=== PATIENT | female | born 1985 | race Caucasian/White ===

== ENCOUNTER → 2016-12-08 | Outpatient (CLI) | payer BC ==
[~2016-12-08] MED LIST: PRENTAB26 PO
[2016-12-08 15:34] LABS: HEMATOCRIT 38.8 % (37-47); MEAN CELL VOLUME 82.9 fL (80-100); MEAN CORPUSCULAR HEMOGLOBIN 26.9 pg (25-34); MEAN CORPUSCULAR HGB CONC 32.5 g/dl (32-36); PLATELET COUNT 445 K/uL (130-400); RED BLOOD COUNT 4.68 M/uL (4.2-5.4); WHITE BLOOD COUNT 11.09 K/uL (4.8-10.8)
[2016-12-08 15:56] LABS: PREG INTERNAL NEGATIVE QC NEG CLEAR BACKGROUND; PREG INTERNAL POSITIVE QC POS CONTROL LINE
== END | disposition home or self-care (01) ==
LOC: C.LAB1850 14:37
PROVIDERS: ATTEND Obstetrics & Gynecology
DX: N93.9 Abnormal uterine and vaginal bleeding, unspecified (principal)

== ENCOUNTER → 2016-12-08 | Outpatient (CLI) | payer BC | END | disposition home or self-care (01) | LOC: C.PAPS 11:34 | PROVIDERS: ATTEND Obstetrics & Gynecology | DX: Z01.419 Encounter for gynecological examination (general) (routine) without abnormal findings (principal) ==

== ENCOUNTER → 2016-12-16 | Outpatient (CLI) | payer BC ==
[2016-12-16 15:31] LABS: BASO % 0.3 %; BASO ABS # 0.03 K/uL (0-0.2); COMPLETE YES; EOS % 2.4 %; IG% 0.2 %; LYMPH % 27.1 %; MEAN CELL VOLUME 83.5 fL (80-100); MEAN CORPUSCULAR HEMOGLOBIN 27.1 pg (25-34); MEAN CORPUSCULAR HGB CONC 32.5 g/dl (32-36); MEAN PLATELET VOLUME 9.9 fL (7.4-10.4); MONO % 6.8 %; NEUT % 63.2 %; PLATELET COUNT 516 K/uL (130-400); RED BLOOD COUNT 4.31 M/uL (4.2-5.4)
== END | disposition home or self-care (01) ==
LOC: C.LAB1850 14:28
PROVIDERS: ATTEND Obstetrics & Gynecology
DX: O02.1 Missed abortion (principal)

== ENCOUNTER 2016-12-24 08:04 | Day surgery (SDC) | payer BC ==
[~2016-12-24] VITALS: Ht 162.6 cm; Wt 127.5 kg
[~2016-12-24 08:04] MED LIST changes: +LACTATED RINGER'S 1000ML 1,000 ML IV SCH
[2016-12-24] MEDS ORDERED: PROPOFOL IV EMULSION 10 MG/ML 20 ML VIAL IV ONE (08:25)
[2016-12-24] MEDS ORDERED: MIDAZOLAM HCL 1 MG/ML 2ML VIAL ONE (08:25)
[2016-12-24] MEDS ORDERED: DEXAMETHASONE SOD INJ 4 MG/ML VIAL ONE (08:25)
[2016-12-24] MEDS ORDERED: LIDOCAINE HCL 2% 2 ML VIAL (20MG/ML) ONE (08:25)
[2016-12-24] MEDS ORDERED: ROCURONIUM BROMIDE 10 MG/ML 5 ML VIAL ONE (08:25)
[2016-12-24] MEDS ORDERED: NEOSTIGMINE METHYLSULFATE 5 MG/5 ML SYR ONE (08:25)
[2016-12-24] MEDS ORDERED: GLYCOPYRROLATE INJ 0.2 MG/ML VIAL ONE (08:25)
[2016-12-24] MEDS ORDERED: ONDANSETRON INJ 2 MG/ML 2 ML VIAL ONE (08:25)
[2016-12-24] MEDS ORDERED: FENTANYL CITRATE INJ 50 MCG/1 ML 2 ML VIAL ONE (08:26)
[2016-12-24] MEDS ORDERED: FENTANYL CITRATE INJ 50 MCG/1 ML 2 ML VIAL IV PRN ×2 (08:45→11:00)
[2016-12-24] MEDS ORDERED: EpHEDrine SULFATE INJ 50 MG/ML AMP IV PRN ×2 (08:45→11:00)
[2016-12-24] MEDS ORDERED: ATROPINE SULFATE 0.1 MG/ML 5ML SYR IV PRN ×2 (08:45→11:00)
[2016-12-24 09:14] VITALS: BP 141/83; PULSE 109; TEMP 37.5; O2SAT 98; Ht 162.6 cm; Wt 127.5 kg
--- NOTE | 2016-12-24 09:50 | History & Physical Bridge Note ---
H&P Re-Evaluation Bridge Note: I have examined the patient, reviewed the History & Physical and in the interval since the performance of the History & Physical I have noted the following changes of clinical significance: No changes noted
[2016-12-24] MEDS ORDERED: SODIUM CHLORIDE 0.9% 1000ML 1,000 ML IV SCH (09:55)
--- NOTE | 2016-12-24 09:57 | Discharge Instructions ---
Discharge Instructions Visit Reason for Visit: Missed Discharge Discharge Diagnosis / Problem: missed Discharge Goals Goal(s): Specific goals Activity Recommendations Activity Limitations: per Instructions/Follow-up section Anesthesia . Post Anesthesia Instructions: If you have had General Anesthesia or IV Sedation: * Do not drive today. * Resume driving when surgeon permits. * Do not make important decisions or sign legal documents today. * Call surgeon for: 1. Temperature elevations greater than 101 degrees F. 2. Uncontrollable pain. 3. Excessive bleeding. 4. Persistent nausea and vomiting. 5. Medication intolerance (nausea, vomiting or rash). * For nausea and vomiting use only clear liquids such as: tea, soda, bouillon until nausea subsides, then gradually increase diet as tolerated. * If you have any concerns or questions, call your surgeon's office. If physician is unavailable and it is an emergency, call 911 or go to the nearest emergency room. . Instructions / Follow-Up Instructions / Follow-Up ACTIVITY RECOMMENDATIONS: * Avoid tampons, douching, hot tubs, pools, and intercourse until bleeding has stopped. * May shower as usual. * No strenuous activity for 24-48 hours. After 24-48 hours, you may do anything you feel like doing (driving and sports are okay). SPECIAL CARE INSTRUCTIONS: Special Diet: * Mild nausea may occur in the immediate post-operative period. * Take clear liquids such as tea, cola or bouillon until all nausea has subsided; you may then resume your normal diet. Special Care: * Light bleeding and vaginal spotting can last from a few days to 3-4 weeks. Call your doctor if bleeding becomes heavier than the heaviest part of your period. * Check your temperature twice a day for one week. If it goes above 100.4 degrees Fahrenheit (38.0 Celsius), notify your doctor. * Call your doctor's office for an appointment for 6 weeks after your surgery. FOLLOW-UP VISIT: Call your doctor's office for an appointment for 6 weeks after your surgery. Diet Recommendations Recommended Home Diet: resume previous diet Medical Emergencies . Who to Call and When: Medical Emergencies: If at any time you feel your situation is an emergency, please call 911 immediately. . Non-Emergent Contact . . "Provider Documentation" section prepared by Yadira Ferreira.
[2016-12-24] MEDS ORDERED: OXYCODONE/ACETAMINOPHEN 5-325 TAB PO PRN ×2 (10:00)
[2016-12-24] MEDS ORDERED: PROMETHAZINE HCL INJ 25 MG in SODIUM CHLORIDE 0.9% 50ML 50 ML IV PRN (10:00)
[2016-12-24] MEDS ORDERED: ONDANSETRON INJ 2 MG/ML 2 ML VIAL IV PRN ×2 (10:00→11:00)
[2016-12-24] MEDS ORDERED: KETOROLAC TROMETHAMINE 30 MG/ML VIAL IV. PRN (10:00)
[2016-12-24] MEDS ORDERED: IBUPROFEN 600 MG TAB PO PRN (10:00)
[2016-12-24] MEDS ORDERED: LABETALOL HCL IV 5 MG/ML 20ML IV PRN (11:00)
[2016-12-24] MEDS ORDERED: HYDROmorphone INJ 1 MG/ML SYR IV PRN (11:00)
[2016-12-24] MEDS ORDERED: MEPERIDINE HCL 25 MG/ML CARP IV PRN (11:00)
--- NOTE | 2016-12-24 11:00 | Anesthesiology Progress Note ---
Anesthesia Post Op Note Date & Time Dec 24, 2016 at 11:00 Vital Signs Pain Intensity: 0 Vital Signs Past 12 Hours Date Time Temp Pulse Resp B/P Pulse Ox O2 Delivery O2 Flow Rate FiO2 12/24/16 10:46 36.6 102 16 136/93 99 Mask 10 12/24/16 09:14 37.5 109 18 141/83 98 Room Air Notes Mental Status: alert / awake / arousable, participated in evaluation Pt Amnestic to Procedure: Yes Nausea / Vomiting: adequately controlled Pain: adequately controlled Airway Patency, RR, SpO2: stable & adequate BP & HR: stable & adequate Hydration State: stable & adequate Anesthetic Complications: no major complications apparent
[2016-12-24 11:31] VITALS: BP 137/81; PULSE 97; TEMP 37; O2SAT 95
[2016-12-24 12:10] VITALS: BP 149/69; PULSE 93; TEMP 36.4; O2SAT 96
[2016-12-24 12:20] VITALS: BP 152/74; PULSE 100; TEMP 36.5; O2SAT 96
--- NOTE | 2016-12-30 13:02 | OPERATIVE REPORT ---
DATE OF OPERATION: 12/24/2016 PREOPERATIVE DIAGNOSIS: Missed incompletely treated by Cytotec. POSTOPERATIVE DIAGNOSIS: Same. PROCEDURE: D\T\E. SURGEON: Dr. Ferreira. SPECIMENS: None. COMPLICATIONS: None. DISPOSITION: Stable to the recovery room. OPERATION AND FINDINGS: DESCRIPTION: Rock is a 31-year-old who had been managed through our office for a first trimester missed using Cytotec. Despite 2 doses of Cytotec and 2 weeks of observation, the patient was unable to completely pass the products of conception and continued to have vascular retained placental tissue showing on ultrasound as well as continued bleeding. The patient was brought to the operating room for planned D\T\E, placed in the dorsal lithotomy position using candy-cane stirrups, prepped and draped in standard sterile fashion and a hard time-out was taken prior to proceeding. The bladder was emptied of urine via straight catheterization. Specula were introduced to the vagina. The anterior lip of the cervix was grasped using a single-tooth tenaculum. The cervix was gently dilated to allow passage of a 8 mm rigid curet which was introduced to the fundus and suction was then applied and through 3 passes, retrieving material that appeared consistent with products of conception. A brief sharp curettage was carried out ensuring good cry on all self and one final suction pass retrieved any loose clot and debris. All instruments were then removed and the patient's procedure was considered complete after which she was transferred to the PACU in stable condition. I attest to the content of the Intraoperative Record and any orders documented therein. Any exceptio ns are noted below.
== END 2016-12-24 12:30 | disposition home or self-care (01) ==
LOC: C.ACU 08:04
PROVIDERS: ATTEND Obstetrics & Gynecology
DX: O02.1 Missed abortion (principal); N93.9 Abnormal uterine and vaginal bleeding, unspecified; L40.9 Psoriasis, unspecified; L83 Acanthosis nigricans

== ENCOUNTER → 2017-02-04 | Outpatient (CLI) | payer BC ==
[~2017-02-04] MED LIST changes: -LACTATED RINGER'S 1000ML 1,000 ML IV SCH
== END | disposition home or self-care (01) ==
LOC: C.LAB1850 10:40
PROVIDERS: ATTEND Obstetrics & Gynecology
DX: O02.1 Missed abortion (principal)

== ENCOUNTER 2022-08-23 07:55 | Inpatient (IN) ==
[2022-08-23] MEDS ORDERED: OXYTOCIN 30 UNITS/500 ML BAG IV PRN ×3 (08:18→15:14)
[2022-08-23] MEDS ORDERED: LIDOCAINE 1% LOCAL 20 ML VIAL INFIL PRN (08:18)
[2022-08-23 08:59] LABS: Hematocrit (blood only) 38.6 % (34.1-44.9); Mean Corpuscular Hemoglobin 29.6 pg (25.0-34.0); Mean Corpuscular Hgb Conc 33.7 g/dL (32.0-36.0); Mean Corpuscular Volume 87.9 fL (80.0-100.0); Mean Platelet Volume 10.8 fL (9.4-12.3); Platelet Count 296 K/uL (130-400); RDW Coefficient of Variation 13.7 % (11.5-14.5); RDW Standard Deviation 43.9 fL (36.4-46.3); Red Blood Count 4.39 M/uL (3.93-5.22); White Blood Count 9.33 K/ul (4.8-10.8)
--- NOTE | 2022-08-23 09:00 | History & Physical Report ---
Date of Service August 23, 2022 Assessment & Plan (1) Insulin controlled gestational diabetes mellitus (GDM) during : (2) Multigravida of advanced maternal age: Plan admit, iv, labs. fhts categ 1. will start pitocin. anticip . plan bsgs in active labor. Admission and Anticipated Discharge Date Admission Date: August 23, 2022 History of Present Illness Chief Complaint: planned induction Primary Care Provider: NO PCP 37yo at 39+wks ega for planned induction for GDM on insulin. Had acharya ripening balloon placed last pm and fell out about 1030pm last night. No rom, no vb. +FM. Denies gage or visual change or ruq pain this am. BP noted and said was elevated last pm too. PNC c/b 1. GDM on insulin, taking qhs nph 2. AMA PNL rh pos, ri, gbs neg OBH: x 1 GYNH: nl paps Allergies Allergy/AdvReac Type Severity Reaction Status Date / Time No Known Allergies Allergy Verified 08/20/22 13:18 Home Medications Medication Instructions Recorded Confirmed Type Multivit/Min/Iron/Fol Ac/Pren 1 tab PO DAILY #0 tabs 07/30/13 08/20/22 History ( Vitamin) acetone (urine) test (Ketone Urine #50 ea 02/11/22 08/20/22 Rx Test strips) blood sugar diagnostic (OneTouch #150 ea 02/11/22 08/20/22 Rx Verio test strips) blood-glucose meter (OneTouch #1 ea 02/11/22 08/20/22 Rx Verio Flex Meter) lancets 33 gauge (OneTouch Delica #150 ea 02/11/22 08/20/22 Rx Plus Lancet) pen needle, diabetic 32 gauge x #100 ea 02/25/22 08/20/22 Rx 5/32" (BD Ultra-Fine Keisha Pen Needle) insulin NPH isoph U-100 human 100 See Rx Instructions subcut .qHS 08/09/22 08/20/22 Rx unit/mL (3 mL) subcutaneous pen #15 mL (Humulin N NPH U-100 Insulin KwikPen) Patient History Medical History (Updated 08/23/22 @ 09:15 by Jocelyn Michaels MD, FACOG) Gestational diabetes Gestational diabetes mellitus (08/01/13) Missed Morbid obesity (06/13/13) Surgical History H/O dilation and curettage 2016 Family History (Updated 01/15/22 @ 14:43 by Juliane Wade, MAXIME) Father Heart disease Mother Uterine cyst Grandmother (Paternal) Lung cancer Grandfather (Maternal) Heart disease Grandmother (Maternal) Alzheimer disease Denies family history of Ovarian cancer Breast cancer Social History (Updated 01/15/22 @ 14:19 by Juliane Wade, RN) Smoking Status: Never smoker Second Hand Exposure: No; Hx Alcohol Use: No Hx Substance Use: No Preferred Language: Maldivian Communication Ability: Effective Lawyers Required: No Beliefs That Will Affect Care: None marital status: marital status details: Chacorta Anand (37) [phone] Current Living Situation: Spouse Current Living Situation Comment: son, 2 cats current occupational status: employed 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 [employer] Feels Safe at Home: Yes Review of Systems as per Subjective / HPI Physical Exam Constitutional: WD/WN, vitals as above Respiratory: normal respiratory effort, lungs clear to auscultation Cardiovascular: Rate/Rhythm: regular rate and regular rhythm Gastrointestinal (Abdomen): soft gravid nt efw 8-9# Musculoskeletal: no edema nontender calves Neurologic: grossly normal dtrs +2 patellar, no clonus Psychiatric: A+Ox3, euthymic affect Genitourinary: Manual OB Exam: + cervical dilation 4 cm, + cervical effacement 50%, + station -2 and + amniotic fluid (AROM ) clear OB Exam Monitor Tracing: + external FHT monitor used, + external uterine monitor used (no ctx), + category I and + normal FHT variability Results & Data ([place]) Vital Signs (Past 12 Hours) Vital Signs Temp Pulse Resp BP 08/23/22 08:32 107 H 08/23/22 08:32 141/91 H 08/23/22 08:06 98.8 F 111 H 20 144/92 H Coding Level of Care Code None Diagnoses Insulin controlled gestational diabetes mellitus (GDM) during O24.414 Multigravida of advanced maternal age O09.529
[2022-08-23 09:19] LABS: Alanine Aminotransferase 8 U/L (7-52); Albumin Globulin Ratio 0.9 (0.9-2); Albumin Level 2.9 gm/dl (3.4-5.0); Alkaline Phosphatase 98 U/L (34-104); Anion Gap 9 (3-11); Aspartate Aminotransferase 11 U/L (13-39); Bilirubin,Total 0.2 mg/dl (0.2-1.0); Blood Urea Nitrogen 12 mg/dl (6-23); Calcium 8.3 mg/dl (8.5-10.1); Carbon Dioxide 21 mmol/L (21-32); Chloride 107 mmol/L (98-107); Est GFR (African American) 143.2 ml/min; Est GFR (Non-African American) 123.6 ml/min; Globulin 3.1 gm/dl (2.5-4.0); Glucose 115 mg/dl (70-99(Fasting)); Potassium 3.8 mmol/L (3.5-5.1); Sodium 137 mmol/L (136-145)
[2022-08-23] MEDS: LACTATED RINGER'S 1,000 ML IV PRN ×2 (09:24→13:07)
[2022-08-23] MEDS ORDERED: ePHEDrine sulfate 50 MG/ML AMP ONE (12:36)
[2022-08-23] MEDS ORDERED: LIDOCAINE 2%/EPINEPHRINE 1:200,000 20 ML SDV ONE (12:37)
[2022-08-23] MEDS ORDERED: BUPIVACAINE 0.25% 30 ML VIAL ONE (12:37)
[2022-08-23] MEDS ORDERED: fentaNYL citrate 100 MCG/2 ML VIAL ONE (12:37)
[2022-08-23] MEDS ORDERED: fentaNYL 2MCG/ML ROPIVACAINE 1.25MG/ML 100 ML BAG EPI ONE (12:37)
[2022-08-23] MEDS ORDERED: SODIUM CHLORIDE 0.9% INJ 10 ML VIAL ONE (12:37)
[2022-08-23] MEDS ORDERED: ePHEDrine sulfate 50 MG/ML AMP IV PRN (12:56)
[2022-08-23] MEDS ORDERED: NALBUPHINE HCL INJ 10 MG/ML AMP IV PRN (12:56)
[2022-08-23] MEDS ORDERED: ONDANSETRON INJ 2 MG/ML 2 ML VIAL IV PRN (12:56)
[2022-08-23] MEDS ORDERED: diphenhydrAMINE 50 MG/ML VIAL IV PRN (12:56)
[2022-08-23] MEDS ORDERED: PROMETHAZINE HCL 6.25 MG in SODIUM CHLORIDE 0.9% 50 ML IV PRN (12:56)
[2022-08-23] MEDS ORDERED: fentaNYL 2MCG/ML ROPIVACAINE 1.25MG/ML 100 ML BAG EPI PRN (12:56)
[2022-08-23] MEDS ORDERED: NALOXONE HCL 1 MG in SODIUM CHLORIDE 0.9% 1000ML 1,000 ML IV PRN (12:56)
[2022-08-23] MEDS ORDERED: NALOXONE HCL 0.4 MG/1 ML VIAL/CARP IV PRN (12:56)
--- NOTE | 2022-08-23 12:57 | Anesthesiology Consultation ---
Date of Service August 23, 2022 Assessment & Plan Chart Review Chart Review: Patient NOT seen in Pre Admission Testing and Acceptable Risk for Labor Epidural Consults Requested none ASA ASA2 Proposed Anesthesia Anesthesia Type: Labor Epidural Risk / Benefits Reviewed With: PT / POA / Parent / Guardian, Accepts Plan and Informed Consent Obtained History Height/Weight Height: 5 ft 4 in Weight: 129.274 kg Allergies Allergy/AdvReac Type Severity Reaction Status Date / Time No Known Allergies Allergy Verified 08/20/22 13:18 Medications Home Medications Medication Instructions Recorded Confirmed Last Taken acetone (urine) test (Ketone Urine #50 ea 02/11/22 08/20/22 Unknown Test strips) blood sugar diagnostic (OneTouch #150 ea 02/11/22 08/20/22 Unknown Verio test strips) blood-glucose meter (OneTouch #1 ea 02/11/22 08/20/22 Unknown Verio Flex Meter) lancets 33 gauge (OneTouch Delica #150 ea 02/11/22 08/20/22 Unknown Plus Lancet) pen needle, diabetic 32 gauge x #100 ea 02/25/22 08/20/22 Unknown 5/32" (BD Ultra-Fine Keisha Pen Needle) insulin NPH isoph U-100 human 100 See Rx Instructions subcut .qHS 08/09/22 08/23/22 08/22/22 22:00 unit/mL (3 mL) subcutaneous pen #15 mL (Humulin N NPH U-100 Insulin KwikPen) prenat.vits,ariana,osp-xaui-twirt 1 tab PO DAILY 08/23/22 08/23/22 08/22/22 22:00 Active Medications Generic Name Dose Route Start Last Admin Trade Name Freq PRN Reason Stop Dose Admin Lactated Ringer's 1,000 mls @ 125 mls/hr 08/23/22 08:18 08/23/22 12:38 Lr IV 08/25/22 08:17 999 mls/hr .Q8H PRN Infusion L&D Protocol Protocol Oxytocin 30 units in 500 mls @ 8 mls/hr 08/23/22 08:18 08/23/22 11:28 Pitocin IV 08/25/22 08:17 0.48 units/hr .Q24H PRN 8 mls/hr Labor Induction/Augmentation Titration Protocol 0.48 UNITS/HR Past Medical History Medical History (Updated 08/23/22 @ 09:15 by Jocelyn Michaels MD, FACOG) Gestational diabetes Gestational diabetes mellitus (08/01/13) Missed Morbid obesity (06/13/13) Exercise / Class Metabolic Activity II 4-5 Yardwork/Stairs/Walk up hill Past Family History Family History (Updated 01/15/22 @ 14:43 by Juliane Wade, MAXIME) Father Heart disease Mother Uterine cyst Grandmother (Paternal) Lung cancer Grandfather (Maternal) Heart disease Grandmother (Maternal) Alzheimer disease Denies family history of Ovarian cancer Breast cancer Past Surgical History Surgical History H/O dilation and curettage 2016 Past Anesthesia History No Hx of Anesthesia Complications and No Family Hx of Anesthesia Complications History of PONV No Hx of PONV and No Hx of Motion Sickness Social History Smoking Status: Never smoker Hx Alcohol Use: No Hx Substance Use: No Physical Exam Vital Signs Last Vital Signs Temp 37.1 C 08/23/22 10:46 Pulse 84 08/23/22 11:36 Resp 20 08/23/22 10:46 BP 165/91 H 08/23/22 11:36 ENMT Mouth: no dentition abnormality Thyromental Distance: > or= 3.5 Finger Breadths Mallampati Class: II Neck normal visual inspection Respiratory normal respiratory effort Auscultation: lungs clear to auscultation bilaterally Cardiovascular Rate/Rhythm: regular rate and regular rhythm Psychiatric Orientation: alert Testing Laboratory Results 08/23/22 08:40 08/23/22 08:40 Blood Type O Positive 08/23/22 08:40 Antibody Screen NEGATIVE 08/23/22 08:40 08/23/22 08/23/22 12:52 09:43 POC Glucose 79 99
--- NOTE | 2022-08-23 15:11 | Delivery Summary ---
Vaginal Delivery Summary Date of Service August 23, 2022 Vaginal Delivery Summary and 2nd Degree LAC The patient dilated to complete and pushed to deliver a viable male infant Apgars 8 and 9 via over 2nd degree perineal laceration. Mouth and nose bulb suctioned at perineum. Nuchal x 1 reduced at perineum. Shoulders and body delivered with ease. Infant was vigorous and crying at . Cord clamped at 30 seconds of life and to maternal abdomen where the cord was then doubly clamped and cut. Placenta delivered spontaneously and intact, three-vessel cord. Hemostasis not achieved with dilute pitocin and uterine massage and drainage of the bladder for approximately 50 cc under sterile conditions. Additionally cytotec 800mcg placed rectally. Cervix and sulci intact. EBL 500 cc. Laceration repaired in usual fashion with 3-0 vicryl. Mother and baby stable in recovery[place] [facility] [place] Charge Delivery Type Details: and 2nd Degree LAC
[2022-08-23] MEDS ORDERED: HYDROCORTISONE ACETATE 25 MG SUPP PR PRN (15:14)
[2022-08-23] MEDS ORDERED: DIPHTHERIA/TETANUS/PERTUSSIS 0.5 ML SYR/VIAL IM ONE (15:14)
[2022-08-23] MEDS ORDERED: oxyCODONE/ACETAMINOPHEN 5mg/325mg TAB PO PRN (15:14)
[2022-08-23] MEDS ORDERED: ACETAMINOPHEN 325 MG TAB PO PRN (15:14)
[2022-08-23] MEDS ORDERED: bisacodyL 10 MG SUPP PR PRN (15:14)
[2022-08-23] MEDS ORDERED: miSOPROStoL 200 MCG TAB PR ONE (15:14)
[2022-08-23] MEDS ORDERED: BENZOCAINE 20% AER SPR 82.5 GM CAN EXT PRN (15:14)
[2022-08-23] MEDS ORDERED: OXYTOCIN 20 UNITS in LACTATED RINGER'S 1,000 ML IV SCH (15:15)
--- NOTE | 2022-08-23 16:49 | Anesthesia Procedure Note ---
Date of Service August 23, 2022 Anesthesia Post Epidural Note Vital Signs Vital Signs: Temp Pulse Resp BP Pulse Ox 37.1 C 99 H 20 132/68 97 08/23/22 10:46 08/23/22 16:40 08/23/22 10:46 08/23/22 16:40 08/23/22 15:04 Notes Mental Status: alert / awake / arousable Nausea / Vomiting: adequately controlled Pain: adequately controlled Airway Patency, RR, SpO2: stable & adequate BP & HR: stable & adequate Hydration State: stable & adequate Neuraxial Anesthesia: was administered and sensory block is resolving Anesthetic Complications: no major complications apparent and Pt Satisfied with anesthetic care Epidural: Removed without complications and With tip intact
[2022-08-23] MEDS: DOCUSATE SODIUM 100 MG CAP PO SCH (20:45)
[2022-08-23] MEDS: IBUPROFEN 600 MG TAB PO PRN (23:41)
[2022-08-24] MEDS: IBUPROFEN 600 MG TAB PO PRN (05:29)
--- NOTE | 2022-08-24 06:25 | Obstetrical Progress Note ---
Date of Service <Crystal WallaceDO - Last Filed: 08/24/22 07:24> August 24, 2022 Assessment & Plan <Crystal WallaceDO - Last Filed: 08/24/22 07:24> (1) Status post vaginal delivery: continue OOB, ambulation, diet as tolerated <Jocelyn Michaels MD, FACOG - Last Filed: 08/24/22 08:17> (1) Status post vaginal delivery: Subjective <Crystal WallaceDO - Last Filed: 08/24/22 07:24> Rock is a 37 y/o female who is now PPD # 1 following spontaneous vaginal delivery at 39 6/7 weeks. Reports feeling well overall this morning. Mild abdominal cramping well managed on analgesics. Voiding. Tolerating meals overnight and able to ambulate some. Some persistent lochia with some improvement this morning. Breast feeding. Review of Systems Denies fever, chills, sweats Denies shortness of breath, difficulty breathing, chest pain, palpitations, chest pressure. Denies breast pain. Denies dysuria. Denies headache or changes in vision. Physical Exam <Crystal WallaceDO - Last Filed: 08/24/22 07:24> General: Alert, oriented. No acute distress. Cardiac: Regular rate and rhythm, no murmurs/rubs/gallops. Respiratory: Clear to auscultation bilaterally a/p, no wheezes/rales/rhonchi. No increased work of breathing. Symmetrical chest rise. No respiratory distress. Abdomen: Soft, nontender, nondistended. Uterus: Uterine fundus firm, palpable 2 cm below umbilicus. Lower Extremities: No lower extremity edema or swelling. No deep calf pain. Elli's negative bilaterally. Results & Data ([facility]) <Crystal WallaceDO - Last Filed: 08/24/22 07:24> Vital Signs (Past 12 Hours) Vital Signs Temp Pulse Resp BP Pulse Ox O2 Del Method 08/24/22 05:25 36.5 C 79 17 132/83 98 Room Air 08/23/22 23:45 36.8 C 88 18 147/95 H 97 Room Air 08/24/22 00:30 90 121/86 08/23/22 20:40 36.9 C 97 H 16 137/89 96 Room Air 08/23/22 18:30 37.2 C 103 H 18 146/98 H 97 Room Air <Jocelyn Michaels MD, FACOG - Last Filed: 08/24/22 08:17> Co-Signing Physician Notes Resident Physician Supervision Note: I was present with Dr. Wallace during the history and exam. I discussed the case with the resident and agree with the findings and plan as documented in the note. Any exceptions or clarifications are listed here: pt doing well, eating, voiding and ambulating without problem. wants to go home later. breast feeding going well. vss, no bp issues pp. hgb noted. abd soft ff at 2 down nt, nt calves. ppd#1 s/p . plan dc later today, instructions reviewed. plan 6wk pp check. plans mirena insertion ultimately for control. plan 2hrgtt after 6wk pp. breast, rhpos, ri. Documented By: Jocelyn Michaels MD, FACOG Resident Activity Tracking <Crystal Wallace, - Last Filed: 08/24/22 07:24> Resident Involvement: Resident Care Provided Care Provided: OB Delivery (Post )
[2022-08-24 06:29] LABS: Hematocrit (blood only) 33.6 % (34.1-44.9); Hemoglobin 11.3 g/dl (12.0-16.0)
[2022-08-24] MEDS ORDERED: PRENATAL VITAMIN 1 TAB PO SCH (08:00)
[2022-08-24] MEDS: DOCUSATE SODIUM 100 MG CAP PO SCH (08:26)
== END 2022-08-24 17:05 | disposition home or self-care (01) | DRG 807 ==
LOC: 4S1 07:55 → 4E2 18:21